=== PATIENT | female | born 1940 | race Caucasian/White ===

== ENCOUNTER 2017-05-27 09:18 | Emergency (ER) | payer OTHER ==
[~2017-05-27] VITALS: Ht 162.6 cm; Wt 68.0 kg
[2017-05-27 09:18] VITALS: BP_SYST 180
[2017-05-27] MEDS ORDERED: NACL 0.9% 1,000 ML IV SCH (09:21)
[2017-05-27] MEDS ORDERED: ONDANSETRON HCL 4 MG/2 ML VIAL IVP ONE (09:30)
[2017-05-27] MEDS ORDERED: MORPHINE 2 MG/ML INJ. SYRINGE IVP ONE (09:30)
[2017-05-27] MEDS ORDERED: LORA-258 PO (09:37)
[2017-05-27] MEDS ORDERED: BENA1TAB16 PO (09:37)
[2017-05-27] MEDS ORDERED: ZOLP5TAB2 PO (09:37)
[2017-05-27] MEDS ORDERED: FOLI-43 PO (09:37)
[2017-05-27] MEDS ORDERED: AZU500 PO (09:37)
[2017-05-27] MEDS ORDERED: OMEP40CA33 PO (09:37)
[2017-05-27] MEDS ORDERED: ASPI-862 PO (09:37)
[2017-05-27] MEDS ORDERED: PROP20TA7 PO (09:37)
[2017-05-27] MEDS ORDERED: BENA40TA2 PO (09:41)
[2017-05-27] MEDS ORDERED: NOR10 PO (09:41)
[2017-05-27] MEDS ORDERED: HYDR25TA4 PO (09:41)
[2017-05-27] MEDS ORDERED: FLUO10CA65 PO (09:41)
[2017-05-27 09:53] LABS: BASOPHILS # (AUTO) 0.1 K/uL (0.0-0.2); BASOPHILS % (AUTO) 0.8 % (0.0-2.0); EOSINOPHILS # (AUTO) 0.1 K/uL (0.0-0.4); EOSINOPHILS % (AUTO) 0.8 % (0.0-4.0); HEMATOCRIT 47.3 % (36-48); HEMOGLOBIN 15.6 g/dL (12.0-16.0); LYMPHOCYTES # (AUTO) 1.6 K/uL (1.0-5.5); LYMPHOCYTES % (AUTO) 21.5 % (20.5-51.5); MEAN CORPUSCULAR HEMOGLOBIN 31 pg (27-31); MEAN CORPUSCULAR HGB CONC 33 % (32-36); MEAN CORPUSCULAR VOLUME 93 fL (79.0-98.0); MONOCYTES # (AUTO) 0.7 K/uL (0.0-1.0); MONOCYTES % (AUTO) 9.4 % (1.7-9.3); NEUTROPHILS # (AUTO) 4.8 K/uL (1.8-7.7); NEUTROPHILS % (AUTO) 67.5 % (40.0-70.0); PLATELET COUNT (AUTO) 335 K/uL (130-430); RED CELL DISTRIBUTION WIDTH 12.3 % (9.0-15.0); WHITE BLOOD COUNT (AUTO) 7.3 K/uL (4.8-10.8)
[2017-05-27 09:57] LABS: ANION GAP 13 (5-15); CALCIUM 10.1 mg/dL (8.4-11.0); CHLORIDE 87 mmol/L (98-107); CREATININE 0.67 mg/dL (0.55-1.30); GLUCOSE 134 mg/dL (70-99); POTASSIUM 3.2 mmol/L (3.5-5.1); SODIUM SERUM 122 mmol/L (136-145); UREA NITROGEN, BLOOD 8 mg/dL (8-21)
[2017-05-27 10:02] LABS: ALANINE AMINOTRANSFERASE 20 U/L (12-78); ALBUMIN 4.3 g/dL (3.4-4.8); ASPARTATE AMINOTRANSFERASE 20 U/L (10-37); TOTAL BILIRUBIN 0.6 mg/dL (0.0-1.0); TOTAL PROTEIN, SERUM 7.7 g/dL (6.4-8.3)
[2017-05-27 10:06] LABS: PROTHROMBIN TIME 11.1 SECS (9.5-12.5)
[2017-05-27] MEDS ORDERED: POTASSIUM CHLORIDE 20 MEQ TAB.PRT.SR PO ONE (10:15)
[2017-05-27 11:04] LABS: BILIRUBIN,URINE NEGATIVE (NEGATIVE); BLOOD, URINE NEGATIVE (NEGATIVE); CLARITY/URINE CLEAR (CLEAR); COLOR,URINE YELLOW (YELLOW); GLUCOSE,URINE NEGATIVE (NEGATIVE); KETONES,URINE 1+ (NEGATIVE); LEUKOCYTE ESTERASE ,URINE NEGATIVE (NEGATIVE); NITRITE, URINE NEGATIVE (NEGATIVE); PH,URINE 7.5 (5.0-8.0); PROTEIN URINE NEGATIVE (NEGATIVE); UROBILINOGEN,URINE 0.2 (0.2-1.0)
[2017-05-27 12:40] VITALS: BP_SYST 110
== END 2017-05-27 12:40 | disposition home or self-care (01) ==
LOC: SED 09:18
DX: E87.6 Hypokalemia (principal); E87.1 Hypo-osmolality and hyponatremia; I10 Essential (primary) hypertension; K21.9 Gastro-esophageal reflux disease without esophagitis; Z79.899 Other long term (current) drug therapy
CPT/HCPCS: 36415; 71010; 80053; 81003; 83605; 84484; 85025; 85610; 85730; 87040; 87086; 93005; 96361; 96374; 96375; 99285; J2270; J2405; J7030

== ENCOUNTER 2018-11-26 10:14 | Inpatient (IN) | payer OTHER ==
[2018-11-26] VITALS: BP_SYST 175
[~2018-11-26] VITALS: Ht 160 cm; Wt 70.8 kg
[~2018-11-26 10:14] MED LIST: ASPI-862 PO; AZU500 PO; BENA40TA2 PO; FOLI-43 PO; HYDR25TA4 PO; LORA-258 PO; NOR10 PO; OMEP40CA33 PO; PRO10 PO; PROP20TA7 PO; ZOLP5TAB2 PO
[2018-11-26 10:39] VITALS: BP_SYST 132
[2018-11-26] MEDS ORDERED: NACL 0.9% 1,000 ML IV ONE (10:45)
[2018-11-26 11:15] LABS: BASOPHILS # (AUTO) 0.1 K/uL (0.0-0.2); BASOPHILS % (AUTO) 0.6 % (0.0-2.0); EOSINOPHILS % (AUTO) 0.4 % (0.0-4.0); HEMATOCRIT 44.3 % (36-48); HEMOGLOBIN 14.8 g/dL (12.0-16.0); LYMPHOCYTES # (AUTO) 1.7 K/uL (1.0-5.5); LYMPHOCYTES % (AUTO) 15.3 % (20.5-51.5); MEAN CORPUSCULAR HEMOGLOBIN 31 pg (27-31); MEAN CORPUSCULAR HGB CONC 34 % (32-36); MEAN CORPUSCULAR VOLUME 92 fL (79.0-98.0); MONOCYTES # (AUTO) 1.1 K/uL (0.0-1.0); MONOCYTES % (AUTO) 9.9 % (1.7-9.3); NEUTROPHILS # (AUTO) 8.4 K/uL (1.8-7.7); NEUTROPHILS % (AUTO) 73.8 % (40.0-70.0); PLATELET COUNT (AUTO) 472 K/uL (130-430); RED BLOOD CELL COUNT(AUTO) 4.83 MIL/uL (4.2-6.2); RED CELL DISTRIBUTION WIDTH 12.7 % (9.0-15.0); WHITE BLOOD COUNT (AUTO) 11.3 K/uL (4.8-10.8)
[2018-11-26] MEDS ORDERED: ESCI10TA PO (11:16)
[2018-11-26] MEDS ORDERED: LORA0.5T PO (11:16)
[2018-11-26] MEDS ORDERED: PRAV40TA PO (11:16)
[2018-11-26 11:26] LABS: ANION GAP 12 (5-15); CALCIUM 10.3 mg/dL (8.4-11.0); CREATININE 0.71 mg/dL (0.55-1.30); GLUCOSE 126 mg/dL (70-99); UREA NITROGEN, BLOOD 15 mg/dL (8-21)
[2018-11-26 11:32] LABS: ALANINE AMINOTRANSFERASE 27 U/L (12-78); ASPARTATE AMINOTRANSFERASE 30 U/L (10-37); TOTAL BILIRUBIN 0.6 mg/dL (0.0-1.0)
[2018-11-26 11:39] LABS: POTASSIUM 2.4 mmol/L (3.5-5.1); SODIUM SERUM 119 mmol/L (136-145)
[2018-11-26 11:40] LABS: CHLORIDE 81 mmol/L (98-107)
[2018-11-26] MEDS ORDERED: KCL 20 mEq in NS 1000 mL 1,000 ML IV ONE (11:45)
[2018-11-26] MEDS: NACL 0.9% 1,000 ML IV ONE (12:15)
[2018-11-26 12:47] VITALS: BP_SYST 166
[2018-11-26 12:51] VITALS: BP_SYST 167
[2018-11-26 13:33] LABS: BILIRUBIN,URINE NEGATIVE (NEGATIVE); BLOOD, URINE NEGATIVE (NEGATIVE); CLARITY/URINE CLEAR (CLEAR); COLOR,URINE YELLOW (YELLOW); GLUCOSE,URINE NEGATIVE (NEGATIVE); KETONES,URINE TRACE (NEGATIVE); LEUKOCYTE ESTERASE ,URINE NEGATIVE (NEGATIVE); NITRITE, URINE NEGATIVE (NEGATIVE); PROTEIN URINE NEGATIVE (NEGATIVE); UROBILINOGEN,URINE 0.2 (0.2-1.0)
[2018-11-26] MEDS ORDERED: ACETAMINOPHEN 325 MG TABLET PO PRN (14:30)
[2018-11-26] MEDS ORDERED: ONDANSETRON HCL 4 MG/2 ML VIAL IVP PRN (14:30)
[2018-11-26 16:50] VITALS: BP_SYST 159
[2018-11-26 20:30] VITALS: BP_SYST 158
[2018-11-26] MEDS: SODIUM CHLORIDE 500 MG TABLET PO SCH ×2 (21:00→22:05)
[2018-11-26] MEDS ORDERED: ZOLPIDEM TARTRATE 5 MG TABLET PO ONE (21:30)
[2018-11-26] MEDS: HYDROcodone/ACETAMIN 5-325 MG TAB (NORCO/ VICODIN) PO PRN (21:49)
[2018-11-26] MEDS ORDERED: POTASSIUM CHLORIDE 20 MEQ TAB.PRT.SR PO ONE (23:15)
[2018-11-26] MEDS ORDERED: hydrALAZINE HCL 25 MG TABLET PO PRN (23:30)
[2018-11-26] MEDS: hydrALAZINE HCL 25 MG TABLET PO PRN (23:50)
[2018-11-27] MEDS ORDERED: KCL 10 mEq in 50 mL (PREMIX) 50 ML IV SCH
[2018-11-27 00:30] VITALS: BP_SYST 175
[2018-11-27] MEDS ORDERED: KCL 20 mEq in 100 mL (PREMIX) 200 ML IV ONE (00:43)
[2018-11-27] MEDS: KCL 20 mEq in 100 mL (PREMIX) 100 ML IV SCH ×2 (01:24→03:36)
[2018-11-27] MEDS: HYDROcodone/ACETAMIN 5-325 MG TAB (NORCO/ VICODIN) PO PRN ×4 (04:25→22:52)
[2018-11-27 05:27] LABS: ANION GAP 9 (5-15); CALCIUM 9.7 mg/dL (8.4-11.0); CHLORIDE 88 mmol/L (98-107); GLUCOSE 124 mg/dL (70-99); POTASSIUM 3.5 mmol/L (3.5-5.1); SODIUM SERUM 123 mmol/L (136-145); UREA NITROGEN, BLOOD 11 mg/dL (8-21)
[2018-11-27 05:42] LABS: ALANINE AMINOTRANSFERASE 25 U/L (12-78); ALBUMIN 3.7 g/dL (3.4-4.8); ASPARTATE AMINOTRANSFERASE 29 U/L (10-37); THYROID STIMULATING HORMONE 1.69 uIu/mL (0.36-3.74); TOTAL BILIRUBIN 0.6 mg/dL (0.0-1.0)
[2018-11-27 08:00] VITALS: BP_SYST 165
[2018-11-27] MEDS ORDERED: ENALAPRILAT DIHYDRATE 1.25 MG/ML VIAL IVP PRN (08:00)
[2018-11-27] MEDS: SODIUM CHLORIDE 500 MG TABLET PO SCH ×4 (08:58→20:55)
[2018-11-27] MEDS: ATORVASTATIN 10 MG TABLET PO SCH (08:59)
[2018-11-27] MEDS: ASPIRIN 325 MG TABLET (ECOTRIN) PO SCH (08:59)
[2018-11-27] MEDS: amLODIPine BESYLATE 10 MG TABLET PO SCH (09:00)
[2018-11-27] MEDS ORDERED: ESCITALOPRAM OXALATE 10 MG TABLET PO SCH (09:00)
[2018-11-27] MEDS ORDERED: PRAVASTATIN SODIUM 20 MG TABLET (PRAVACHOL) PO SCH (09:00)
[2018-11-27] MEDS: CITALOPRAM HYDROBROMIDE 20 MG TABLET PO SCH (09:01)
[2018-11-27] MEDS: PROPRANOLOL HCL 10 MG TABLET (INDERAL) PO SCH ×3 (09:01→20:54)
[2018-11-27] MEDS: FOLIC ACID 1 MG TABLET PO SCH (09:01)
[2018-11-27] MEDS: BENAZEPRIL HCL 20 MG TABLET (LOTENSIN) PO SCH (09:02)
[2018-11-27] MEDS: OMEPRAZOLE 20 MG CAPSULE.DR (PriLOSEC) PO SCH (09:02)
[2018-11-27 12:39] VITALS: BP_SYST 153
[2018-11-27 16:17] VITALS: BP_SYST 152
[2018-11-27 20:00] VITALS: BP_SYST 179
[2018-11-27] MEDS: hydrALAZINE HCL 25 MG TABLET PO PRN (20:59)
[2018-11-27] MEDS: ZOLPIDEM TARTRATE 5 MG TABLET PO PRN (22:52)
[2018-11-28] VITALS (8 sets, daily range): BP systolic 132–186
[2018-11-28 07:48] LABS: ANION GAP 10 (5-15); CALCIUM 9.7 mg/dL (8.4-11.0); CHLORIDE 89 mmol/L (98-107); CREATININE 0.47 mg/dL (0.55-1.30); GLUCOSE 115 mg/dL (70-99); SODIUM SERUM 125 mmol/L (136-145); UREA NITROGEN, BLOOD 11 mg/dL (8-21)
[2018-11-28 08:06] LABS: POTASSIUM 2.9 mmol/L (3.5-5.1)
[2018-11-28] MEDS ORDERED: POTASSIUM CHLORIDE 20 MEQ/PKT PACKET PO ONE (09:15)
[2018-11-28] MEDS: OMEPRAZOLE 20 MG CAPSULE.DR (PriLOSEC) PO SCH (09:53)
[2018-11-28] MEDS: ASPIRIN 325 MG TABLET (ECOTRIN) PO SCH (09:55)
[2018-11-28] MEDS: FOLIC ACID 1 MG TABLET PO SCH (09:55)
[2018-11-28] MEDS: ATORVASTATIN 10 MG TABLET PO SCH (09:55)
[2018-11-28] MEDS: SODIUM CHLORIDE 500 MG TABLET PO SCH ×4 (09:56→21:04)
[2018-11-28] MEDS: PROPRANOLOL HCL 10 MG TABLET (INDERAL) PO SCH ×3 (09:56→21:03)
[2018-11-28] MEDS: CITALOPRAM HYDROBROMIDE 20 MG TABLET PO SCH (09:57)
[2018-11-28] MEDS: amLODIPine BESYLATE 10 MG TABLET PO SCH (09:57)
[2018-11-28] MEDS: BENAZEPRIL HCL 20 MG TABLET (LOTENSIN) PO SCH (09:57)
[2018-11-28] MEDS: HYDROcodone/ACETAMIN 5-325 MG TAB (NORCO/ VICODIN) PO PRN ×3 (09:58→21:11)
[2018-11-28] MEDS ORDERED: SODIUM CHLORIDE 3% *HI-ALERT* 200 ML IV SCH (12:00)
[2018-11-28] MEDS: ZOLPIDEM TARTRATE 5 MG TABLET PO PRN (21:09)
[2018-11-29] MEDS: HYDROcodone/ACETAMIN 5-325 MG TAB (NORCO/ VICODIN) PO PRN ×2 (02:57→09:27)
[2018-11-29 06:44] LABS: ANION GAP 11 (5-15); CALCIUM 9.6 mg/dL (8.4-11.0); CHLORIDE 91 mmol/L (98-107); CREATININE 0.63 mg/dL (0.55-1.30); GLUCOSE 119 mg/dL (70-99); POTASSIUM 3.1 mmol/L (3.5-5.1); SODIUM SERUM 129 mmol/L (136-145); UREA NITROGEN, BLOOD 12 mg/dL (8-21)
[2018-11-29 08:00] VITALS: BP_SYST 156
[2018-11-29] MEDS: SODIUM CHLORIDE 500 MG TABLET PO SCH ×2 (09:13→12:49)
[2018-11-29] MEDS: FOLIC ACID 1 MG TABLET PO SCH (09:15)
[2018-11-29] MEDS: ASPIRIN 325 MG TABLET (ECOTRIN) PO SCH (09:15)
[2018-11-29] MEDS: amLODIPine BESYLATE 10 MG TABLET PO SCH (09:15)
[2018-11-29] MEDS: BENAZEPRIL HCL 20 MG TABLET (LOTENSIN) PO SCH (09:17)
[2018-11-29] MEDS: ATORVASTATIN 10 MG TABLET PO SCH (09:18)
[2018-11-29] MEDS: PROPRANOLOL HCL 10 MG TABLET (INDERAL) PO SCH (09:18)
[2018-11-29] MEDS: CITALOPRAM HYDROBROMIDE 20 MG TABLET PO SCH (09:18)
[2018-11-29] MEDS: OMEPRAZOLE 20 MG CAPSULE.DR (PriLOSEC) PO SCH (09:19)
[2018-11-29] MEDS ORDERED: POTASSIUM CHLORIDE 20 MEQ/PKT PACKET PO ONE (11:15)
[2018-11-29 12:25] VITALS: BP_SYST 147
[2018-11-29] MEDS ORDERED: SODIUM CHLORIDE PO (12:38)
[2018-11-29 12:49] VITALS: BP_SYST 152
== END 2018-11-29 14:31 | disposition home or self-care (01) | DRG 641 ==
LOC: SED 10:14 → OBSVTOIN 12:05 → SMU 12:05
PROVIDERS: ADMIT Internal Medicine Hospice and Palliative Medicine; ATTEND Internal Medicine Hospice and Palliative Medicine
DX: E87.1 Hypo-osmolality and hyponatremia (principal); I10 Essential (primary) hypertension; E78.5 Hyperlipidemia, unspecified; I73.9 Peripheral vascular disease, unspecified; F41.9 Anxiety disorder, unspecified; K21.9 Gastro-esophageal reflux disease without esophagitis; Z60.2 Problems related to living alone; E87.6 Hypokalemia; M19.90 Unspecified osteoarthritis, unspecified site; E87.8 Other disorders of electrolyte and fluid balance, not elsewhere classified; Z87.81 Personal history of (healed) traumatic fracture
CPT/HCPCS: 36415; 71045; 80048; 80053; 81003; 82533; 83735-TC; 84132-TC; 84302-TC; 84443-TC; 85025; 96365; 99285; J2405; J3480; J3490; J7050